=== PATIENT | male | born 1995 | race Caucasian/White ===

== ENCOUNTER 2016-11-24 09:36 | Emergency (ER) | payer OTHER ==
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
[2016-11-24] MEDS ORDERED: IBUPROFEN 800 MG TABLET PO ONE (10:22)
[2016-11-24] MEDS ORDERED: ACETAMINOPHEN 325 MG TABLET PO ONE (10:22)
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
[2016-11-24 11:24] VITALS: BP 122/78
== END 2016-11-24 11:20 | disposition home or self-care (01) ==
LOC: ER 09:36
DX: M54.5 Low back pain (principal); M54.6 Pain in thoracic spine; V87.7XXA Person injured in collision between other specified motor vehicles (traffic), initial encounter
CPT/HCPCS: 72110; 99283

== ENCOUNTER 2018-11-12 19:56 | Emergency (ER) | payer OTHER, BC ==
--- NOTE | 2018-11-12 22:52 | RADIOLOGY REPORT (SQ) ---
EXAM DESCRIPTION: XR SHOULDER 2 OR MORE VIEWS COMPLETED DATE/TME: 11/12/2018 22:17 CLINICAL HISTORY: 23 years Male, shoulder pain COMPARISON: None. Findings: Bones, joints, and soft tissues of the RIGHT XR SHOULDER 2 OR MORE VIEWS appear intact. IMPRESSION: No acute findings.
[2018-11-12] MEDS ORDERED: ACETAMINOPHEN 325 MG TABLET PO ONE (23:43)
[2018-11-12] MEDS ORDERED: IBUPROFEN 600 MG TABLET PO ONE (23:43)
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
[2018-11-13 00:33] VITALS: BP 112/70
== END 2018-11-13 00:33 | disposition home or self-care (01) ==
LOC: ER 19:56
DX: S49.91XA Unspecified injury of right shoulder and upper arm, initial encounter (principal); M25.511 Pain in right shoulder; R20.0 Anesthesia of skin; V86.95XA Unspecified occupant of 3- or 4- wheeled all-terrain vehicle (ATV) injured in nontraffic accident, initial encounter
CPT/HCPCS: 99283